=== PATIENT | female | born 1950 | race Caucasian/White ===

== ENCOUNTER 2018-12-23 20:25 | Emergency (ER) | payer BC ==
[2018-12-23 20:59] VITALS: BP 136/79
[2018-12-23] MEDS ORDERED: metroNIDAZOLE TAB* 250 MG PO ONE (21:20)
[2018-12-23] MEDS ORDERED: Ciprofloxacin TAB* 500 MG PO ONE (21:20)
--- NOTE | 2018-12-23 21:30 | UC ---
Abdominal Pain Female HPI - HPI Summary HPI Summary: 68 year old female presents reporting onset of LLQ pain yesterday. Patient has known diverticulosis and states she was treated empirically for diverticulitis on other time. Reports pain is similar to what she had last time she was treated for diverticulitis. States pain is a constant dull ache that has progressively worsened over the past 24 hours. She states that she recently returned from [facility] on 12/21/2018 and reports that while in country she had diarrhea for a few days but that it had resolved at least 2-3 days before returning. She states she has continued to have some partially formed loose stools. Last BM today. Today she developed fever of 101 F. Denies weakness, dizziness, lightheadedness, nausea, vomiting, blood in stool, melena, back or flank pain, dysuria, frequency, urgency, hematuria, vaginal discharge, or abnormal vaginal bleeding. - History of Current Complaint Chief Complaint: UCAbdominalPain Stated Complaint: ABD PAIN Time Seen by Provider: 12/23/18 21:06 Hx Obtained From: Patient Pain Intensity: 5 Allergies/Adverse Reactions: Allergies Allergy/AdvReac Type Severity Reaction Status Date / Time No Known Allergies Allergy Verified 12/23/18 20:59 Home Medications: Home Medications Psyllium Husk [Fiber] 12/23/18 [History Confirmed 12/23/18] Vitamin A 12/23/18 [History] PMH/Surg Hx/FS Hx/Imm Hx Previously Healthy: Yes GI/ History: Diverticulitis - Surgical History Surgical History: None - Family History Known Family History: Positive: Non-Contributory - Social History Occupation: Employed Full-time Lives: With Family Alcohol Use: Occasionally Substance Use Type: None Smoking Status (MU): Never Smoked Tobacco Review of Systems All Other Systems Reviewed And Are Negative: Yes Constitutional: Positive: Fever ENT: Positive: Negative Respiratory: Positive: Negative Cardiovascular: Positive: Negative Gastrointestinal: Positive: Abdominal Pain, Diarrhea. Negative: Vomiting, Nausea Genitourinary: Positive: Negative Musculoskeletal: Positive: Negative Neurological: Positive: Negative Is Patient Immunocompromised?: No Physical Exam - Summary Physical Exam Summary: GENERAL APPEARANCE: Well developed, well nourished, alert and cooperative, and appears to be in no acute distress. CARDIAC: Normal S1 and S2. No S3, S4 or murmurs. Rhythm is regular. There is no peripheral edema, cyanosis or pallor. Extremities are warm and well perfused. Capillary refill is less than 2 seconds. Peripheral pulses intact. LUNGS: Clear to auscultation without rales, rhonchi, wheezing or diminished breath sounds. ABDOMEN: Positive bowel sounds. Soft, nondistended. LLQ tenderness without guarding or rebound. No masses or hepatosplenomegally. No CVA tenderness. MUSKULOSKELETAL: ROM intact to all extremities. No joint erythema or tenderness. Normal muscular development. Normal gait. SKIN: Skin normal color, texture and turgor with no lesions or eruptions. Triage Information Reviewed: Yes Vital Signs: Initial Vital Signs Temp 100.3 F 12/23/18 20:53 Pulse 70 12/23/18 20:53 Resp 16 12/23/18 20:53 BP 136/79 12/23/18 20:53 Pulse Ox 100 12/23/18 20:53 Vital Signs Reviewed: Yes Abd Pain Female Course/Dx - Course Course Of Treatment: 68 year old female presents reporting onset of LLQ pain yesterday. Patient has known diverticulosis and states she was treated empirically for diverticulitis on other time. Reports pain is similar to what she had last time she was treated for diverticulitis. States pain is a constant dull ache that has progressively worsened over the past 24 hours. She states that she recently returned from [facility] on 12/21/2018 and reports that while in country she had diarrhea for a few days but that it had resolved at least 2-3 days before returning. She states she has continued to have some partially formed loose stools. Last BM today. Today she developed fever of 101 F. Denies weakness, dizziness, lightheadedness, nausea, vomiting, blood in stool, melena, back or flank pain, dysuria, frequency, urgency, hematuria, vaginal discharge, or abnormal vaginal bleeding. Patient had a mildly elevated temp of 100.3 F and vitals were otherwise stabel. Patient was well appearing with a soft, non- distended abdomen, LLQ tenderness without rebound or guarding, and otherwise unremarkable exam. We discussed that based on her history and exam her symptoms were very likely from diverticulitis although I could not fully rule out other causes especially with her recent travel. We discussed starting treatment for diverticulitis with close follow up with her PCP vs going to the ED for further evaluation and the patient is electing for the former. Because she is well appearing and has PCP follow up I feel that this is a reasonable plan. We obtained a CBC, CMP, and CRP and started her on ciprofloxacin 500 mg BID x 10 days and metronidazole 500 mg TID x 10 days. First doses were given in the clinic. She is to follow up with her PCP in 1-2 days. Anticipatory guidance and warning symptoms were reviewed with the patient. Verbalizes understanding and agrees with POC. - Differential Dx/Diagnosis Differential Diagnosis: Diverticulitis, Other - gastroenteritis, traveler's diarrhea Provider Diagnosis: Acute abdominal pain in left lower quadrant Discharge - Sign-Out/Discharge Documenting (check all that apply): Patient Departure All imaging exams completed and their final reports reviewed: No Studies - Discharge Plan Condition: Stable Disposition: HOME Prescriptions: Ciprofloxacin TAB* [Cipro 500 MG TAB*] 500 mg PO BID 10 Days #20 tab metroNIDAZOLE [Metronidazole] 500 mg PO TID 10 Days #30 tablet Patient Education Materials: Diverticulitis (ED) Referrals: Pushpa Garcia MD [Primary Care Provider] - 2 Days Additional Instructions: Based on your history and exam I suspect he may have an acute diverticulitis. We will start she was on antibiotics to treat for this. Take ciprofloxacin 500 mg twice a day for 10 days. Take metronidazole 500 mg 3 times a day for 10 days. Do not drink alcohol while taking this medication and for at least 2 days after completing the course. You may continue with a regular diet if tolerated however if you find that the pain worsens with eating you may want to stick to a clear liquid diet until the pain subsides. Follow-up with your primary care provider in one to 2 days for recheck of her symptoms. Seek immediate medical attention in the emergency room if you develop a persistent fever greater than 100.5 F, have worsening abdominal pain, persistent or projectile vomiting, blood in your bowel movement, dark black stools, or any worsening of symptoms. - Billing Disposition and Condition Condition: STABLE Disposition: Home
[2018-12-24 12:09] LABS: ABS Lymphocytes 0.9 10^3/ul (1.0-4.8); ABS Monocytes 0.5 10^3/ul (0-0.8); ABS Neutrophils 5.3 10^3/ul (1.5-7.7); Eosinophil % 0.5 %; Hematocrit 41 % (35-47); Hemoglobin 14.1 g/dL (12.0-16.0); Lymphocyte % 12.7 %; Mean Corpuscular HGB Conc 34 g/dL (31-36); Mean Corpuscular Hemoglobin 30 pg (27-31); Mean Corpuscular Volume 87 fL (80-97); Mean Platelet Volume 9.1 fL (7.4-10.4); Platelet Count 205 10^3/uL (150-450); Red Blood Count 4.68 10^6 /uL (3.70-4.87); Red Cell Distribution Width 14 % (10-15); White Blood Count 6.7 10^3/uL (3.5-10.8)
[2018-12-24 12:16] LABS: Albumin 4.4 g/dL (3.2-5.2); Calcium 9.2 mg/dL (8.6-10.3); Total Bilirubin 0.6 mg/dL (0.2-1.0)
[2018-12-24 12:22] LABS: Albumin/Globulin Ratio 1.9 (1-3); BUN/Creatinine Ratio 9.1 (8-20); C Reactive Protein 22.67 mg/L (<8.01); EGFR African American 90.8 (>60); Globulin 2.3 g/dL (2-4); Total Protein 6.7 g/dL (6.4-8.9)
== END 2018-12-23 21:39 | disposition home or self-care (01) ==
LOC: UCEAST 20:25
DX: R10.32 Left lower quadrant pain (principal)
CPT/HCPCS: 36415; 80053; 85025; 86140; 99212; A9270-GY; G0463